=== PATIENT | male | born 2000 | race Caucasian/White ===

== ENCOUNTER 2021-02-14 20:34 | Emergency (ER) | payer OTHER ==
[~2021-02-14] VITALS: Ht 182.9 cm; Wt 77.1 kg
[2021-02-14 22:51] VITALS: BP 130/85
== END 2021-02-14 22:52 | disposition home or self-care (01) ==
LOC: ER 20:35
DX: M62.830 Muscle spasm of back (principal); V49.9XXA Car occupant (driver) (passenger) injured in unspecified traffic accident, initial encounter; Y93.89 Activity, other specified; Y92.89 Other specified places as the place of occurrence of the external cause; Y99.8 Other external cause status
CPT/HCPCS: 70450; 72125